=== PATIENT | female | born 1975 | race American Indian/Alaskan Native ===

== ENCOUNTER 2020-07-14 12:17 | Emergency (ER) | payer SELFPAY ==
[2020-07-14 12:49] VITALS: BP 187/144
--- NOTE | 2020-07-14 14:17 | XRay Report ---
CHEST 2 VIEWS INDICATION / CLINICAL INFORMATION: Chest Pain. COMPARISON: None available. FINDINGS: SUPPORT DEVICES: None. HEART / MEDIASTINUM: The heart size and pulmonary vasculature are normal. The aorta is normal in yahir geremias. LUNGS / PLEURA: No significant pulmonary or pleural abnormality. No pneumothorax. ADDITIONAL FINDINGS: No significant additional findings. IMPRESSION: No acute findings. Signer Name: Amado Lugo MD Signed: 07/14/2020 2:13 PM Workstation Name: [id number]
== END 2020-07-14 17:33 | disposition left against medical advice (07) ==
LOC: ED 12:17
DX: R07.89 Other chest pain (principal); Z53.21 Procedure and treatment not carried out due to patient leaving prior to being seen by health care provider
CPT/HCPCS: 71046; 93005